=== PATIENT | female | born 1980 | race Asian ===

== ENCOUNTER 2023-12-15 13:42 | Emergency (ER) | payer OTHER ==
[~2023-12-15] VITALS: Ht 160 cm; Wt 72.6 kg
[2023-12-15 13:43] VITALS: BP_SYST 139; PULSE 92; RESP 20; TEMP 97.5; O2SAT 95
[2023-12-15 14:05] LABS: BASOPHILS # (AUTO) 0.1 K/uL (0.0-0.2); BASOPHILS % (AUTO) 0.8 % (0.0-2.0); EOSINOPHILS # (AUTO) 0.1 K/uL (0.0-0.4); EOSINOPHILS % (AUTO) 0.8 % (0.0-4.0); HEMATOCRIT 40.6 % (36-48); HEMOGLOBIN 13.6 g/dL (12.0-16.0); LYMPHOCYTES # (AUTO) 2.1 K/uL (1.0-5.5); LYMPHOCYTES % (AUTO) 19.6 % (20.5-51.5); MEAN CORPUSCULAR HEMOGLOBIN 28 pg (27-31); MEAN CORPUSCULAR HGB CONC 34 % (32-36); MEAN CORPUSCULAR VOLUME 84 fL (79.0-98.0); MONOCYTES # (AUTO) 0.7 K/uL (0.0-1.0); MONOCYTES % (AUTO) 6.2 % (1.7-9.3); NEUTROPHILS # (AUTO) 7.7 K/uL (1.8-7.7); NEUTROPHILS % (AUTO) 72.6 % (40.0-70.0); PLATELET COUNT (AUTO) 471 K/uL (130-430); RED BLOOD CELL COUNT(AUTO) 4.81 MIL/uL (4.2-6.2); RED CELL DISTRIBUTION WIDTH 12.9 % (9.0-15.0); WHITE BLOOD COUNT (AUTO) 10.6 K/uL (4.8-10.8)
[2023-12-15] MEDS ORDERED: iohexoL 350 mgI/mL, 100 ML INFUS..BTL IV ONE (14:18)
[2023-12-15 14:23] LABS: PROTHROMBIN TIME 10.3 SECS (9.5-12.5)
[2023-12-15 14:27] LABS: ALANINE AMINOTRANSFERASE 21 U/L (12-78); ALBUMIN 4.2 g/dL (3.4-4.8); ANION GAP 11 (5-15); ASPARTATE AMINOTRANSFERASE 16 U/L (10-37); BILIRUBIN,DIRECT 0.1 mg/dL (0.0-0.3); CALCIUM 9.4 mg/dL (8.4-11.0); CARBON DIOXIDE 30 mmol/L (23-29); CHLORIDE 101 mmol/L (98-107); CREATINE KINASE, TOTAL 63 U/L (26-192); CREATININE 0.86 mg/dL (0.55-1.30); GFR AFRICAN AMERICAN 94 mL/min (>90); GLUCOSE 97 mg/dL (74-106); POTASSIUM 3.4 mmol/L (3.5-5.1); SODIUM SERUM 142 mmol/L (136-145); TOTAL BILIRUBIN 0.3 mg/dL (0.0-1.0); TOTAL PROTEIN, SERUM 8.5 g/dL (6.4-8.3); UREA NITROGEN, BLOOD 10 mg/dL (8-21)
[2023-12-15 14:28] LABS: GFR NON AFRICAN-AMERICAN 77 mL/min (>90)
[2023-12-15] MEDS: IPRATROPIUM/ALBUTEROL SULFATE 3 ML AMPUL.NEB (DUONEB) INH ONE (14:56)
[2023-12-15] MEDS: methylPREDNISolone SOD SUCC/PF 62.5 MG/ML VIAL IVP ONE (15:02)
[2023-12-15 15:21] LABS: COVID19 ANTIGEN SOFIA FIA NEGATIVE (NEGATIVE); INFLUENZA TYPE A Negative (NEGATIVE); INFLUENZA TYPE B NEGATIVE (NEGATIVE)
[2023-12-15] MEDS: NACL 0.9% 1,000 ML IV ONE (15:43)
[2023-12-15] MEDS ORDERED: AZIT-93 PO (15:59)
[2023-12-15] MEDS ORDERED: CEFU250T85 PO (16:00)
[2023-12-15] MEDS ORDERED: PRED20TA PO (16:01)
[2023-12-15] MEDS ORDERED: ALBMDI INH (16:02)
[2023-12-15 16:54] VITALS: BP_SYST 136; PULSE 89; RESP 22; TEMP 98.9; O2SAT 99
[2023-12-15] MEDS: AZITHROMYCIN 250 MG TABLET PO ONE (16:54)
[2023-12-15] MEDS ORDERED: cefuroxime axetiL 250 MG TABLET PO SCH (21:00)
== END 2023-12-15 16:58 | disposition home or self-care (01) ==
LOC: SED 13:42
DX: J18.8 Other pneumonia, unspecified organism (principal); R06.00 Dyspnea, unspecified; R04.2 Hemoptysis; Z20.822 Contact with and (suspected) exposure to COVID-19; Z79.899 Other long term (current) drug therapy; Z79.2 Long term (current) use of antibiotics
CPT/HCPCS: 99285; 96374; 71275; 96361; 87426; 80076; 80048; 82550; 83880; 85025; 85379; 85610; 85730; 84484; 36415; 94640; 81025; 87804 ×2; Q9967; J7030; J2930